=== PATIENT | male | born 1975 | race Caucasian/White ===

== ENCOUNTER → 2017-02-23 | Outpatient (CLI) | payer OTHER ==
[~2017-02-23] MED LIST: COUMADIN ** IA5 MG PO; COUMADIN **IA7.5 MG PO; LOVENOX100 MG/1 M SUB-Q; PRILOSEC20 MG PO; TYLENOL EXTRA500 MG PO
[2017-02-23 14:06] LABS: ESTIMATED GFR (MDRD EQUATION) > 60
== END | disposition disaster alternative care site (69) ==
LOC: GRAD 12:39
PROVIDERS: Internal Medicine Gastroenterology
DX: K86.3 Pseudocyst of pancreas (principal); K76.0 Fatty (change of) liver, not elsewhere classified
CPT/HCPCS: Q9967